=== PATIENT | female | born 1995 | race African-American/Black ===

== ENCOUNTER → 2017-04-04 | Outpatient (CLI) | payer BC ==
[2017-04-04 20:19] LABS: CHLAM PCR NOT DETECTED (NOT DETECT)
== END ==
LOC: OD 16:39
PROVIDERS: ATTEND Nurse Practitioner Acute Care
DX: N76.5 Ulceration of vagina (principal); R30.0 Dysuria
CPT/HCPCS: 36415; 86695; 86696; 87491; 87591